=== PATIENT | female | born 1985 | race Caucasian/White ===

== ENCOUNTER 2016-09-03 21:37 | Emergency (ER) | payer SELFPAY ==
[2016-09-03 21:50] VITALS: BP 140/88; PULSE 98; TEMP 98.6; BMI 22.5
--- NOTE | 2016-09-03 21:56 | EDPRACDOC ---
- General Information Chief Complaint: Elbow Pain Stated Complaint: ELBOW PAIN Time Seen by Provider: 09/03/16 21:51 Information Source: Patient Mode Of Arrival: Car Home Medications: Home Medications Sulfamethoxazole/Trimethoprim [Bactrim Ds Tablet] 2 tabs PO BID #40 tab Clindamycin [Cleocin] 300 mg PO TID #60 capsule 07/15/16 Oxycodone Immediate Release [Oxycodone Immediate Release (OxyIR)] 5 mg PO Q6H PRN #10 tab 07/15/16 Ketoprofen 50 mg PO BID PRN #20 capsule 09/03/16 Allergies/Adverse Reactions: Allergies Allergy/AdvReac Type Severity Reaction Status Date / Time acetaminophen Allergy Unknown Difficulty Verified 09/03/16 21:52 [From Darvocet-N 100] Breathing propoxyphene napsylate Allergy Unknown Difficulty Verified 09/03/16 21:52 [From Darvocet-N 100] Breathing tramadol AdvReac Unknown Difficulty Verified 09/03/16 21:52 Breathing - History of Present Illness Onset: 1 day HPI: PT STATES INT PAIN IN RIGHT ELBOW X 2 YEARS, MUCH WORSE OVER LAST DAY, PT STATES THAT PAIN IS SHARP, STABBING AND SEVERE, WORSE WITH MOVEMENT. PT STATES THAT HER PCP HAS INJECTED IT WITH STEROIDS IN THE PAST. NO KNOWN INJURY. Location: Reports: Ulnar, Radial, Lateral, Anterior Dominant Side: Reports: Right Mechanism: Reports: No Trauma Circumstances: Reports: Spontaneous Relevant History: Reports: None Pain Severity: Reports: Severe Ability to Move Elbow: Limited Associated Signs and Symptoms: Reports: Swelling. Denies: Numbness, Weakness, Shoulder Pain, Arm Pain, Forearm Pain, Wrist Pain ED Past Medical History - History Reviewed Yes Nurses notes reviewed and agree except as marked - Patient Medical History Cardiac History: Reports: Hypertension Respiratory History: Reports: COPD GI/ History: Denies: Urinary Tract Infection Psychological History: Reports: Depression, Substance Use Disorder (OPIATE ABUSE (PER PT, CLEAN SINCE JANUARY 2015)) Additional Past Medical History: Chronic Back Pain Surgical History: Reports: Other (BTL, back surgery x 2) - Social Medical History Smoking Status: Heavy tobacco smoker (5 or more cigarettes/day or daily pipe/ cigar) Social History: Reports: Substance Use Disorder (OPIATE ABUSE (PER PT, CLEAN SINCE JANUARY 2015)) EDM Review of Systems - Review of Systems Neurological: negative: Dizziness, Numbness, Weakness Musculoskeletal: Elbow Integumentary: No Symptoms Reported - Physical Exam Constitutional: Alert (Awake), No apparent distress Oriented to: Time, Person, Place Last recorded Vital Signs: Last Vital Signs Temp 98.6 F 09/03/16 21:47 Pulse 98 09/03/16 21:47 Resp 20 09/03/16 21:47 BP 140/88 09/03/16 21:47 Pulse Ox 100 09/03/16 21:47 Oxygen Pulse Oxygen Saturation 100 O2 Device Oxygen Flow Rate Fraction of Inspired Oxygen ( FIO2) - HEENT Head: Normal ( normocephalic) - Integumentary Skin: Normal, Warm, Dry Lymphatics: Normal (no adenopathy) - Neurologic Memory Impaired: Normal Motor Function: Normal (Normal tone, Pulses 2+ No cyanosis or edema, FROM) Cranial Nerve: Normal (CN II-X11 intact sensation, strength 5/5) Cerebellar: Normal Mood Description: Normal Perception: Normal ED Elbow Problem Exam - Musculoskeletal Elbow Symptoms: Limited ROM, Moderate Tenderness (OVER LATERAL EPICONDYLE). negative: Swelling, Deformity, Ecchymosis Shoulder Symptoms: Normal Arm Symptoms: Normal Forearm Symptoms: Normal Wrist Symptoms: Normal Distal Function/Circulation: Normal, Capillary Refill. negative: Motor Deficit , Pulse Deficit, Sensory Deficit - Integumentary Skin: Other (MULTIPLE LINEAR SCARS HANDS AND FOREARMS C/W PAST HX OF IVDA) - Differential Diagnosis Arthritis, Olecranon Bursitis Decision Time to Discharge: 21:57 - Departure Disposition: Home Condition: Stable Final Diagnosis: Lateral epicondylitis of elbow Qualifiers: Laterality: right Qualified Code(s): M77.11 - Lateral epicondylitis, right elbow Instructions: Tennis Elbow Exercises (GEN), Tennis Elbow (ED) Education/Counseling Given To: Patient Education/Counseling Given Regarding: Diagnosis, Treatment, Prognosis, Follow Up Referrals: Ivan Guzman DO [Staff Physician] - One Week Prescriptions: Ketoprofen 50 mg PO BID PRN #20 capsule PRN Reason: Pain Additional Instructions: APPLY WARM COMPRESSES TO YOUR ELBOW 20 MINS AT A TIME 4 - 5 TIMES DAILY NEEDED FOR PAIN, WEAR SLING NEEDED FOR COMFORT.
[2016-09-03] MEDS ORDERED: KETOROLAC TROMETHAMINE 10 MG TAB PO ONE (21:59)
== END 2016-09-03 22:13 | disposition home or self-care (01) ==
LOC: EDMC 21:37
DX: M77.11 Lateral epicondylitis, right elbow (principal); I10 Essential (primary) hypertension; J44.9 Chronic obstructive pulmonary disease, unspecified; F17.210 Nicotine dependence, cigarettes, uncomplicated
CPT/HCPCS: 99283; J3490